=== PATIENT | female | born 1965 | race Caucasian/White ===

== ENCOUNTER 2024-06-04 18:59 | Emergency (ER) | payer BC | END 2024-06-04 21:05 | disposition home or self-care (01) | LOC: JP.ED 18:59 | DX: S79.911A Unspecified injury of right hip, initial encounter (principal); I10 Essential (primary) hypertension; Z79.82 Long term (current) use of aspirin; Z79.899 Other long term (current) drug therapy; V80.010A Animal-rider injured by fall from or being thrown from horse in noncollision accident, initial encounter; Y93.52 Activity, horseback riding | CPT/HCPCS: 73030-26-RT; 73030-RT; 73502-26-RT; 73502-RT; 99283 ==